=== PATIENT | female | born 1930 | race Caucasian/White ===

== ENCOUNTER → 2022-04-17 | Outpatient (CLI) | payer OTHER ==
[~2022-04-17] MED LIST: AMIO200; ASPI81EC; ATEN100; ATEN100 PO; ATEN50; Aspirin EC325 MG PO; BENZ100A PO; DOXA1; DOXA4; GABA100 PO; IBUP200; LEVSOD100; LEVSOD125; LIOT25 PO; LISHYD2012 PO; LISI10; Levaquin500 MG PO; NASACORT10.8 ML NS; NITR100CA PO; PROM25 PO; PROP150 PO; Prednisone20 MG PO; VENL37.5 PO; VENL75ER; WARF5 PO; ZESTORETIC 20-121 EA PO; Zithromax250 MG PO
== END | disposition home or self-care (01) ==
LOC: LAB SHORT 18:01
DX: N39.0 Urinary tract infection, site not specified (principal)
CPT/HCPCS: 87086

== ENCOUNTER → 2022-04-27 | Outpatient (CLI) | payer OTHER | END | disposition home or self-care (01) | LOC: LAB SHORT 16:18 | DX: R31.29 Other microscopic hematuria (principal) | CPT/HCPCS: 87086 ==